=== PATIENT | female | born 1975 | race Two or more races ===

== ENCOUNTER 2023-08-16 00:50 | Emergency (ER) | payer OTHER ==
[~2023-08-16] VITALS: Ht 162.6 cm; Wt 75.0 kg
[2023-08-16 01:04] VITALS: TEMP 98
[2023-08-16 01:39] LABS: BASOPHILS % (AUTO) 0.3 % (0.0-2.0); EOSINOPHILS % (AUTO) 0.4 % (1.0-6.0); HEMATOCRIT 40.7 % (36-46); HEMOGLOBIN 13.7 g/dL (12.0-16.0); LYMPHOCYTES # (AUTO) 0.6 K/uL (1.0-4.8); LYMPHOCYTES % (AUTO) 8.6 % (22.0-44.0); MEAN CORPUSCULAR HEMOGLOBIN 29.3 pg (26.0-34.0); MEAN CORPUSCULAR HGB CONC 33.7 G/dL (31.0-37.0); MEAN CORPUSCULAR VOLUME 87 fL (80-100); MONOCYTES # (AUTO) 0.6 K/uL (0.1-1.0); MONOCYTES % (AUTO) 7.8 % (2.0-9.0); NEUTROPHILS # (AUTO) 5.9 K/uL (1.8-7.7); NEUTROPHILS % (AUTO) 82.9 % (40.0-70.0); PLATELET COUNT (AUTO) 239 K/uL (150-450); RED BLOOD CELL COUNT(AUTO) 4.68 MIL/uL (4.00-5.20); WHITE BLOOD COUNT (AUTO) 7.1 K/uL (4.5-11.0)
[2023-08-16 01:56] LABS: ANION GAP 10 mmol/L (8-16); CARBON DIOXIDE 24 mmol/L (22-29); CHLORIDE 100 mmol/L (98-107); CREATININE 0.69 mg/dL (0.60-1.30); GLOMERULAR FILTR. RATE CALC > 60 mL/min (>60); GLUCOSE,RANDOM 138 mg/dL (70-110); POTASSIUM 3.2 mmol/L (3.5-5.1); SODIUM SERUM 134 mmol/L (136-145); UREA NITROGEN, BLOOD 9 mg/dL (7-18)
[2023-08-16 02:01] LABS: ALANINE AMINOTRANSFERASE 50 U/L (12-78); ALBUMIN 3.6 g/dL (3.4-5.0); ALKALINE PHOSPHATASE 118 U/L (46-116); ASPARTATE AMINOTRANSFERASE 62 U/L (15-37); BILIRUBIN,TOTAL 0.4 mg/dL (0.1-1.0); LIPASE 31 U/L (16-77); TOTAL PROTEIN, SERUM 7.3 g/dL (6.4-8.2)
[2023-08-16] MEDS: ONDANSETRON HCL 4 MG/2 ML VIAL IVP ONE (02:13)
[2023-08-16] MEDS: SODIUM CHLORIDE 0.9% 1,000 ML IV ONE (02:13)
[2023-08-16] MEDS: KETOROLAC TROMETHAMINE 30 MG/ML VIAL IVP ONE (02:13)
[2023-08-16 02:17] LABS: LACTIC ACID 1.2 mmol/L (0.4-2.0)
[2023-08-16 02:49] LABS: COVID AG,FIA SOURCE NASAL SWAB
[2023-08-16 02:52] LABS: SARS-COV2 (COVID) ANTIGEN,FIA Negative (Negative)
[2023-08-16 03:16] LABS: INFLUENZA A-RTPCR,COMBO NEGATIVE (NEGATIVE); INFLUENZA B-RTPCR,COMBO NEGATIVE (NEGATIVE); RESPIRATORY SYNCYTIAL VRS-PCR NEGATIVE (NEGATIVE)
[2023-08-16 03:19] LABS: TROPONIN I-HIGH SENSITIVITY 13 ng/L (<51)
[2023-08-16 03:41] VITALS: BP 130/74; PULSE 74; RESP 18
[2023-08-16 03:42] LABS: SARS COVID19 RTPCR, COMBO POSITIVE (NEGATIVE)
[2023-08-16] MEDS ORDERED: ONDA-104 PO (03:56)
[2023-08-16] MEDS ORDERED: GUAIFDM PO (03:56)
[2023-08-16] MEDS ORDERED: ACET-2080 PO (03:56)
[2023-08-16 04:25] LABS: APPEARANCE,URINE CLEAR (CLEAR); BILIRUBIN,URINE NEGATIVE (NEGATIVE); COLOR,URINE COLORLESS (YELLOW); GLUCOSE, URINE (UA) NEGATIVE (NEGATIVE); KETONES,URINE NEGATIVE (NEGATIVE); LEUKOCYTE ESTERASE ,URINE NEGATIVE (NEGATIVE); NITRATE,URINE NEGATIVE (NEGATIVE); OCCULT BLOOD,URINE NEGATIVE (NEGATIVE); PH,URINE 5.5 (5.0-8.0); PROTEIN,URINE NEGATIVE (NEGATIVE); SPECIFIC GRAVITIY, URINE 1.006 (1.003-1.030); UROBILINOGEN,URINE <=1.0 mg/dL (<=1.0)
== END 2023-08-16 04:40 | disposition home or self-care (01) ==
LOC: EMS 00:52
DX: U07.1 COVID-19 (principal); R10.13 Epigastric pain; I10 Essential (primary) hypertension
CPT/HCPCS: 99285; 96374; 0241U; 76700; 96361; 96375; 80053; 81003; 83605; 83690; 84484; 84703; 85025; 36415; 93005; 87426; J1885; J2405; J7030